=== PATIENT | female | born 1975 | race Two or more races ===

== ENCOUNTER 2025-06-19 11:53 | Outpatient (CLI) | payer OTHER | END 2025-06-19 12:02 | disposition home or self-care (01) | LOC: SONOGRAMA 11:53 | PROVIDERS: ATTEND Otolaryngology | DX: E04.9 Nontoxic goiter, unspecified (principal) ==

== ENCOUNTER → 2025-08-20 | Outpatient (CLI) | payer OTHER | END | disposition home or self-care (01) | LOC: SONOGRAMA 10:06 | PROVIDERS: ATTEND Pathology Anatomic Pathology | DX: D44.0 Neoplasm of uncertain behavior of thyroid gland (principal); E04.9 Nontoxic goiter, unspecified ==